=== PATIENT | female | born 1965 | race Caucasian/White ===

== ENCOUNTER → 2017-02-04 | Outpatient (CLI) | payer BC ==
--- NOTE | 2017-02-04 15:24 | Diagnostic Imaging Report ---
EXAMINATION: Bilateral diagnostic mammogram with a Computer Aided Detection (CAD) system. INDICATION: Lump in the upper outer aspect of the right breast. COMPARISON: 11/27/2010. FINDINGS: There are bilateral symmetric appearing breast implants seen. The area of the lump is marked in the upper outer aspect of the right breast and appears to correlate with a 1 cm focal asymmetry with lobulated and some angular margins. This appears to be a new finding which is concerning. The left breast demonstrates no definite change. IMPRESSION: Concerning new focal asymmetry measuring 1 cm at the palpable lump region. An ultrasound evaluation is pending. ACR BI-RADS Category 0: Incomplete. (Needs additional imaging evaluation). Result letter will be mailed to the patient. Note: At least 10% of breast cancer is not imaged by mammography. Dictated by: Dictated on workstation # [id number]
--- NOTE | 2017-02-04 15:50 | Diagnostic Imaging Report ---
EXAMINATION: Right breast ultrasound. INDICATION: Right breast lump. FINDINGS: There is an irregular hypoechoic mass with internal vascularity seen, measuring 1.3 x 1.1 x 0.9 cm with no shadowing. This is located at 10:00 zone, 7 cm from the nipple. The four quadrants and retroareolar area of the right breast, as well as the right axilla, were scanned. There is an implant seen, but otherwise no other lesion or lymphadenopathy detected. IMPRESSION: Suspicious 1.3 cm mass in the upper outer aspect of the right breast. Ultrasound-guided biopsy is recommended. ACR BI-RADS Category 4C: Moderate suspicion of malignancy. Result letter will be mailed to the patient. Note: At least 10% of breast cancer is not imaged by mammography. A message about the findings was left on Dr. Hoda Puckett's cell phone by Dr. Garcia. Dictated by: Dictated on workstation # [id number]
== END ==
LOC: RAD 13:52
PROVIDERS: ATTEND Obstetrics & Gynecology
DX: N63 Unspecified lump in breast (principal)
CPT/HCPCS: 76641; 77066

== ENCOUNTER → 2017-02-05 | Outpatient (CLI) | payer BC ==
[~2017-02-05] VITALS: Ht 162.6 cm; Wt 53.5 kg
[~2017-02-05] MED LIST: LIDOCAINE 1% INJ 20 ML (XYLOCAINE) VIAL INJ ONE; LIDOCAINE 1% INJ 20 ML (XYLOCAINE) VIAL ONE
[2017-02-05 10:00] VITALS: BP 118/64
[2017-02-05 11:15] VITALS: BP 112/68
--- NOTE | 2017-02-05 12:34 | Diagnostic Imaging Report ---
EXAMINATION: Vacuum-assisted ultrasound-guided biopsy of breast mass right. A metallic clip placed to sidra biopsy site. INDICATION: Right breast mass. CONSENT: Informed consent was obtained from the patient. The risks, benefits, potential complications and alternatives were reviewed and all questions answered to the patient's satisfaction. FINDINGS: Ultrasound images demonstrate a suspicious 1.3 CM mass at 10:00 zone, 7 CM from the nipple. PROCEDURE: After sterile preparation and draping, 1% lidocaine was utilized for local anesthesia. A vacuum-assisted biopsy device with 14-gauge needle was introduced under live ultrasound guidance into the lesion. Good needle position was documented with ultrasound images. A metallic clip was placed to sidra the site of the biopsy. A subsequent mammogram is performed and confirms the proper positioning of the clip. Multiple samples were obtained and sent to pathology. The patient tolerated the procedure well with no immediate complications. IMPRESSION: Successful ultrasound-guided biopsy of 10:00 right breast mass. A metallic clip placed to sidra biopsy site. Dictated by: Dictated on workstation # [id number]
--- NOTE | 2017-02-05 20:14 | Diagnostic Imaging Report ---
EXAMINATION: CC and lateral views of the right breast. INDICATION: Clip placement documentation after ultrasound-guided biopsy. FINDINGS: There is a clip placed at the site of a previously seen mass at the right upper outer aspect. The nodule at this time is obscured by the surrounding postbiopsy changes. IMPRESSION: Satisfactory clip placement after ultrasound-guided biopsy. Pathology results are pending. ACR BI-RADS Category 4C: Moderate suspicion of malignancy. Result letter will be mailed to the patient. Note: At least 10% of breast cancer is not imaged by mammography. Dictated by: Dictated on workstation # [id number]
== END ==
LOC: RAD 09:48
PROVIDERS: ATTEND Obstetrics & Gynecology
DX: N63 Unspecified lump in breast (principal)
CPT/HCPCS: 19083

== ENCOUNTER → 2017-05-14 | Outpatient (CLI) | payer BC ==
--- NOTE | 2017-05-14 16:41 | Diagnostic Imaging Report ---
PROCEDURE: CT abdomen and pelvis without contrast. TECHNIQUE: Multiple contiguous axial images were obtained through the abdomen and pelvis without the use of intravenous contrast. INDICATION: Hematuria. FINDINGS: The lung bases are clear. The liver, the gallbladder, the spleen, the adrenal glands, and the pancreas appear unremarkable for an unenhanced exam. The kidneys demonstrate 1 mm nonobstructive stones bilaterally with no hydronephrosis. No ureteric or bladder stones are seen. The uterus and adnexa appear grossly unremarkable. The visualized portions of the appendix appear unremarkable. There is no bowel obstruction. The abdominal aorta is normal in caliber. No para-aortic significantly enlarged lymph node is seen. There is a tiny fat-containing umbilical hernia. The osseous structures demonstrate prominent degenerative changes at the lower lumbar spine. IMPRESSION: 1. Bilateral nonobstructive 1 mm kidney stones are seen. No ureteric or bladder stones. No hydronephrosis. 2. Tiny fat-containing umbilical hernia. Dictated by: Dictated on workstation # [id number]
== END ==
LOC: RAD 12:40
PROVIDERS: ATTEND Urology
DX: N20.0 Calculus of kidney (principal); K42.9 Umbilical hernia without obstruction or gangrene
CPT/HCPCS: 74176

== ENCOUNTER → 2017-07-03 | Outpatient (CLI) | payer BC ==
[2017-07-03 09:56] LABS: BASOPHILS # (AUTO) 0.1 10^3/uL (0.0-0.1); BASOPHILS % (AUTO) 0 % (0-10); EOSINOPHILS # (AUTO) 0.1 10^3/uL (0.0-0.3); EOSINOPHILS % (AUTO) 1 % (0-10); LYMPHOCYTES % (AUTO) 14 % (12-44); MEAN CORPUSCULAR HEMOGLOBIN 31 PG (25-34); MEAN CORPUSCULAR HGB CONC 33 G/DL (32-36); MEAN CORPUSCULAR VOLUME 95 FL (80-99); MEAN PLATELET VOLUME 8.8 FL (7.4-10.4); MONOCYTES # (AUTO) 0.7 X 10^3 (0.0-1.0); MONOCYTES % (AUTO) 5 % (0-12); NEUTROPHILS # (AUTO) 11.4 X 10^3 (1.8-7.8); NEUTROPHILS % (AUTO) 80 % (42-75); PLATELET COUNT 328 10^3/uL (130-400); RED BLOOD COUNT 3.89 10^6/uL (4.35-5.85); RED CELL DISTRIBUTION WIDTH 14.9 % (10.0-14.5); WHITE BLOOD COUNT 14.2 10^3/uL (4.3-11.0)
[2017-07-03 10:24] LABS: ALANINE AMINOTRANSFERASE 77 U/L (0-55); ALBUMIN 4.5 GM/DL (3.2-4.5); ANION GAP 9 MMOL/L (5-14); ASPARTATE AMINO TRANSFERASE 35 U/L (5-34); BILIRUBIN,TOTAL 0.2 MG/DL (0.1-1.0); BLOOD UREA NITROGEN 14 MG/DL (7-18); BUN/CREATININE RATIO 18; CALCIUM 9.6 MG/DL (8.5-10.1); CARBON DIOXIDE 26 MMOL/L (21-32); CHLORIDE 106 MMOL/L (98-107); CREATININE SERUM 0.76 MG/DL (0.60-1.30); GFR ESTIMATED > 60; GLUCOSE 91 MG/DL (70-105); POTASSIUM 4.3 MMOL/L (3.6-5.0); SODIUM 141 MMOL/L (135-145); TOTAL PROTEIN 7.4 GM/DL (6.4-8.2)
[2017-07-03 10:47] LABS: BAND NEUTROPHILS 12 %; BASOPHILS % (MANUAL) 0 %; EOSINOPHILS % (MANUAL) 1 %; LYMPHOCYTES % (MANUAL) 8 %; NEUTROPHILS % (MANUAL) 60 %
[2017-07-03 10:48] LABS: METAMYELOCYTES % 3 %; REACTIVE LYMPHOCYTES 11 %
[2017-07-03 10:50] LABS: ANISOCYTOSIS SLIGHT; POIKILOCYTOSIS MODERATE; STOMATOCYTES MODERATE
== END ==
LOC: LAB 09:42
PROVIDERS: ATTEND Surgery
DX: Z01.818 Encounter for other preprocedural examination (principal)
CPT/HCPCS: 36415; 80053; 85007; 85027

== ENCOUNTER → 2017-10-08 | Outpatient (CLI) | payer BC ==
--- NOTE | 2017-10-08 17:42 | Diagnostic Imaging Report ---
PROCEDURE: US abdomen, limited. TECHNIQUE: Multiple realtime grayscale images were obtained over the abdomen in various projections. INDICATION: Postop seroma. FINDINGS: Ultrasound of the subcutaneous soft tissues of the right flank at the muscular cutaneous fat interface. This thin layer of fluid measures 2 mm in thickness. IMPRESSION: Thin seroma in left flank following liposuction. Dictated by: Dictated on workstation # [id number]
== END ==
LOC: RAD 07:58
PROVIDERS: ATTEND Internal Medicine
DX: L76.33 Postprocedural seroma of skin and subcutaneous tissue following a dermatologic procedure (principal)
CPT/HCPCS: 76705

== ENCOUNTER 2017-11-25 05:38 | Outpatient (CLI) | payer BC ==
[~2017-11-25] VITALS: Ht 162.6 cm; Wt 53.5 kg
[2017-11-25] MEDS ORDERED: VALA500T4 PO (13:52)
== END 2017-11-25 13:56 ==
LOC: PREOP 05:38
PROVIDERS: ATTEND Surgery
DX: Z01.818 Encounter for other preprocedural examination (principal); Z12.11 Encounter for screening for malignant neoplasm of colon

== ENCOUNTER → 2018-02-26 | Outpatient (CLI) | payer BC ==
[~2018-02-26] MED LIST changes: -LIDOCAINE 1% INJ 20 ML (XYLOCAINE) VIAL INJ ONE; -LIDOCAINE 1% INJ 20 ML (XYLOCAINE) VIAL ONE; +VALA500T4 PO
--- NOTE | 2018-02-26 15:45 | Diagnostic Imaging Report ---
PROCEDURE: US Non-ob pelvis comp/trans. TECHNIQUE: Multiple real-time grayscale images were obtained of the pelvis in various projections endovaginally. Transabdominal imaging was also performed. INDICATION: Pelvic pain. FINDINGS: The uterus measures 5.6 x 3.7 x 2.7 cm. There is a fibroid measuring 1.8 x 1.4 x 2.0 cm. Endometrium is 2 mm in thickness. Left and right adnexa are evaluated. Ovaries are not visualized. No adnexal mass or free fluid is seen. IMPRESSION: Uterine fibroid. No other significant abnormality is seen. Dictated by: Dictated on workstation # [id number]
== END ==
LOC: RAD 13:27
PROVIDERS: ATTEND Nurse Practitioner
DX: C50.911 Malignant neoplasm of unspecified site of right female breast (principal); D25.9 Leiomyoma of uterus, unspecified
CPT/HCPCS: 76830; 76856

== ENCOUNTER → 2020-01-31 | Outpatient (CLI) | payer BC, OTHER ==
--- NOTE | 2020-01-31 19:16 | Diagnostic Imaging Report ---
INDICATION: History of right breast cancer with bilateral mastectomy and breast reconstruction. Patient has a new lump in the left axilla. This study is performed for further evaluation. Sonographic interrogation of the left axilla was performed. There are 2 tiny hypoechoic nodular regions just below the skin surface in the left axilla. One lesion measures approximately 8 mm x 5 mm x 7 mm. A second nodule measures 4 mm x 3 mm x 4 mm. The patient does report having recent bug bites in this area. There is a lymph node in the left axilla which which is nearly completely fatty replaced and has a thin cortex measuring 2.4 x 0.7 x 0.8 cm. No other abnormality is detected. IMPRESSION: BI-RADS 2 Nonspecific tiny hypoechoic nodules just under the skin surface in the left axilla, accounting for the palpable abnormalities. These are likely benign and could potentially be secondary to patient's recent bug bites. Close clinical and self exam is recommended to confirm stability/resolution. Dictated by: Dictated on workstation # [id number]
== END ==
LOC: RAD 14:10
PROVIDERS: ATTEND Surgery
DX: R22.9 Localized swelling, mass and lump, unspecified (principal); Z85.3 Personal history of malignant neoplasm of breast; Z90.13 Acquired absence of bilateral breasts and nipples
CPT/HCPCS: 76642

== ENCOUNTER → 2020-04-26 | Outpatient (CLI) | payer OTHER ==
--- NOTE | 2020-04-26 11:43 | Diagnostic Imaging Report ---
INDICATION: Lump on the base of the skull on the right. FINDINGS: Sonographic interrogation of area of lump was performed. There is an ovoid, circumscribed hypoechoic nodule within the scalp measuring 10 mm x 3 mm x 9 mm. No internal vascularity is seen. This is nonspecific and indeterminate. IMPRESSION: Indeterminate, circumscribed hypoechoic nodule within the scalp at the area of palpable abnormality. Continued clinical follow-up would be recommended to confirm stability. Dictated by: Dictated on workstation # [id number]
== END ==
LOC: RAD 10:45
PROVIDERS: ATTEND Family Medicine
DX: D48.5 Neoplasm of uncertain behavior of skin (principal)
CPT/HCPCS: 76536

== ENCOUNTER → 2020-08-02 | Outpatient (CLI) | payer OTHER | LOC: LABNPT 07:41 | PROVIDERS: ATTEND Internal Medicine | DX: Z20.828 Contact with and (suspected) exposure to other viral communicable diseases (principal) | CPT/HCPCS: 87635 ==

== ENCOUNTER → 2020-09-24 | Outpatient (CLI) | payer OTHER | LOC: LABNPT 08:56 | PROVIDERS: ATTEND Internal Medicine Hematology & Oncology | DX: Z20.822 Contact with and (suspected) exposure to COVID-19 (principal) | CPT/HCPCS: 87635 ==

== ENCOUNTER → 2020-10-15 | Outpatient (CLI) | payer OTHER | LOC: LABNPT 08:26 | PROVIDERS: ATTEND Internal Medicine Hematology & Oncology | DX: Z20.822 Contact with and (suspected) exposure to COVID-19 (principal) | CPT/HCPCS: 87635 ==

== ENCOUNTER → 2020-11-26 | Outpatient (CLI) | payer OTHER | LOC: LABNPT 09:02 | DX: Z20.822 Contact with and (suspected) exposure to COVID-19 (principal) | CPT/HCPCS: 87635 ==

== ENCOUNTER → 2021-10-04 | Outpatient (CLI) | payer BC, OTHER ==
--- NOTE | 2021-10-04 14:26 | Diagnostic Imaging Report ---
INDICATION: Right rib and axillary pain. No history of trauma. EXAMINATION: Right ribs, 3 views. FINDINGS: The PA chest shows the lungs to be well-aerated and clear. The heart is not enlarged. No pneumothorax or pleural effusion. There are surgical clips in the right axilla. There are bilateral breast implants. Oblique views of the ribs show no evidence of rib fractures. No blastic or lytic bony lesions. IMPRESSION: 1. No rib abnormality is noted. 2. Surgical clips in the right axilla. Dictated by: Dictated on workstation # [id number]
== END ==
LOC: RAD 13:54
PROVIDERS: ATTEND Nurse Practitioner Adult Health
DX: R07.81 Pleurodynia (principal); M79.621 Pain in right upper arm
CPT/HCPCS: 71101